=== PATIENT | female | born 1990 | race Caucasian/White ===

== ENCOUNTER → 2018-01-04 | Outpatient (CLI) | payer OTHER | LOC: COL.RAD 12:59 | DX: S76.312A Strain of muscle, fascia and tendon of the posterior muscle group at thigh level, left thigh, initial encounter (principal); S76.311A Strain of muscle, fascia and tendon of the posterior muscle group at thigh level, right thigh, initial encounter; M25.552 Pain in left hip ==

== ENCOUNTER → 2018-08-31 | Outpatient (CLI) | payer OTHER | LOC: COL.RAD 07:26 | DX: M54.5 Low back pain (principal) ==